=== PATIENT | female | born 1980 | race Caucasian/White ===

== ENCOUNTER 2017-01-25 16:45 | Emergency (ER) | payer OTHER ==
[~2017-01-25] VITALS: Ht 160 cm; Wt 82.8 kg
[~2017-01-25 16:45] MED LIST: IBUP-1050 PO
[2017-01-25 16:54] VITALS: TEMP 36.9; Ht 160 cm; Wt 82.8 kg
[2017-01-25] MEDS ORDERED: CEPHALEXIN MONOHYDRATE 250 MG CAP PO STA (17:12)
[2017-01-25] MEDS ORDERED: CIPROFLOXACIN 500 MG TAB PO STA (17:12)
[2017-01-25] MEDS ORDERED: CEPHALEXIN 500MG HOME PACK 1 EA BTL PO STA (17:12)
[2017-01-25] MEDS ORDERED: CIPROFLOXACIN 500MG HOME PACK PO STA (17:12)
[2017-01-25] MEDS ORDERED: DIPHTHERIA/TETANUS/PERTUSSIS 0.5 ML SYR/VIAL IM. ONE (17:15)
[2017-01-25] MEDS ORDERED: ASCO250T4 PO (17:16)
--- NOTE | 2017-01-25 17:48 | DIAGNOSTIC IMAGING REPORT ---
LEFT FOOT MIN 3 VIEWS ROUTINE CLINICAL HISTORY: Left foot pain. Puncture injury. COMPARISON: None. DISCUSSION: No fractures or dislocations are visualized. No radiopaque foreign bodies are evident. There is a prominent plantar calcaneal spur. No destructive lesions are visualized. IMPRESSION: 1. No fractures identified 2. No radiopaque foreign bodies are visualized Electronically signed by: Bryan Everett M.D. 01/25/2017 5:47 PM Dictated Date/Time: 01/25/2017 5:46 PM
--- NOTE | 2017-01-25 17:50 | EMERGENCY ROOM VISIT NOTE ---
ED Visit Note First contact with patient: 16:59 I have personally seen and evaluated the patient with the physician senior agricultural assistant. I agree with the diagnostic/management decisions and have personally been involved in these decisions and agree with the diagnosis.
[2017-01-25] MEDS ORDERED: CEPH500C PO (17:54)
[2017-01-25] MEDS ORDERED: CIPR-255 PO (17:54)
--- NOTE | 2017-01-25 17:56 | EMERGENCY ROOM VISIT NOTE ---
History First contact with patient: 16:59 Chief Complaint: PUNCTURE WOUND Stated Complaint: STICK POKED THROUGH LF FOOT Nursing Triage Summary: No injury noted in triage. History of Present Illness The patient is a 36 year old female who presents to the Emergency Room via private vehicle with complaints of "stick poked her left foot". The patient states that 2 hours prior to arrival [place] , when she stepped next to a tree that had spikes/thorns and when she stepped on one of them it went through her shoe which was a sneaker, through her sock and into the distal aspect of the bottom of her left foot. She notes that she remove this, and saw a little bit of tissue and bleeding on the end of the thorn. She states that the length of the thorn is roughly 6 cm, and it was very thin. She notes minimal pain in the foot, but it is difficult to walk. Patient is unsure of her last tetanus. Review of Systems A complete 6-point Review of Systems was discussed with the patient, with pertinent positives and negatives listed in the History of Present Illness. All remaining Review of Systems questions can be considered negative unless otherwise specified. Past Medical/Surgical History Unremarkable Family History Heart disease Social History Smoking Status: Never Smoker Social History: Patient lives at home, denies alcohol and tobacco use. Current/Historical Medications Scheduled Ascorbic Acid (Vitamin C), 1 TAB PO DAILY Cephalexin Monohydrate (Keflex), 500 MG PO QID Ciprofloxacin Hcl (Cipro), 500 MG PO BID Scheduled PRN Ibuprofen (Advil), 400 MG PO TID PRN for Pain Allergies Coded Allergies: No Known Allergies (Unverified , 03/29/15) Physical Exam Vital Signs Date Time Temp Pulse Resp B/P Pulse Ox O2 Delivery O2 Flow Rate FiO2 01/25/17 18:12 71 18 147/92 96 01/25/17 16:54 36.9 100 20 138/84 99 Room Air Physical Exam VITAL SIGNS - Vital signs and nursing notes were reviewed. The patient is afebrile, slightly hypertensive, heart rate of 100 and is saturating well on room air 99%. GENERAL -36-year-old female appearing her stated age who is in no acute distress. Communicates well with provider and answers questions appropriately. SKIN - Without rashes. There is a small punctate region, likely where the foreign had injured her foot overlying the left distal MTP regions. A light was held to this region and held in an angle to appreciate any potential retained foreign body. The skin was homogenous. No evidence of retained foreign body. There is no drainage at this time. EXTREMITIES - No clubbing or peripheral cyanosis. No pretibial edema present. Patient is neurovascularly intact in the left lower extremity. No bony tenderness. Medical Decision & Procedures ER Provider Diagnostic Interpretation: LEFT FOOT MIN 3 VIEWS ROUTINE CLINICAL HISTORY: Left foot pain. Puncture injury. COMPARISON: None. DISCUSSION: No fractures or dislocations are visualized. No radiopaque foreign bodies are evident. There is a prominent plantar calcaneal spur. No destructive lesions are visualized. IMPRESSION: 1. No fractures identified 2. No radiopaque foreign bodies are visualized Electronically signed by: Bryan Everett M.D. 01/25/2017 5:47 PM Dictated Date/Time: 01/25/2017 5:46 PM Medications Administered Medications (Trade) Dose Ordered Sig/Emiliano Route Start Time Stop Time Status Last Admin Dose Admin Diphtheria/ Pertussis/Tetanus Vacc (Adacel Inj) 0.5 ml ONCE ONCE IM. 01/25/17 17:15 01/25/17 17:16 DC 01/25/17 17:14 0.5 ML Cephalexin Monohydrate (Keflex 500MG Home Pack) 1 homepack NOW STAT PO 01/25/17 17:12 01/25/17 17:17 DC 01/25/17 18:00 1 HOMEPACK Cephalexin Monohydrate (Keflex Cap) 500 mg NOW STAT PO 01/25/17 17:12 01/25/17 17:17 DC 01/25/17 17:59 500 MG Ciprofloxacin (Cipro Tab) 500 mg NOW STAT PO 01/25/17 17:12 01/25/17 17:17 DC 01/25/17 18:00 500 MG Ciprofloxacin (Cipro 500MG Home Pack) 1 homepack UD STAT PO 01/25/17 17:12 01/25/17 17:17 DC 01/25/17 18:00 1 HOMEPACK Medical Decision Patient was seen and evaluated as above. After obtaining a thorough history and physical examination he was decided to obtain a radiograph of the affected extremity to evaluate for any retained foreign body that is radiopaque. Results as above. No abnormalities noted. Patient was informed about the heel spur. The patient was given Keflex and Cipro for infection prophylaxis. There is also concern for the original so as the puncture was through the shoe. She was given her first dose here, I home pack for departure as well as remainder sent to her pharmacy. Total duration be just over 5 days for this. She was unsure of her last tetanus immunization, and her status was checked in the electronic medical record however no record was found for this. Because of the high risk, she was given the Adacel injection. She is to return in 48 hours for recheck of the wound or with her family doctor. She was educated to return sooner with signs of infection. She was also educated upon wound management. The region was cleansed with normal saline, dressed with bacitracin followed by a bandage. She was educated upon worrisome symptoms which to return, had questions answered prior to discharge and was discharged home in good condition. In evaluation and treatment of this patient the following differential diagnoses were entertained: Retained foreign body, puncture wound, fracture, among others. Impression Primary Impression: Puncture wound of foot, left Departure Information Dispostion Home / Self-Care Condition GOOD Prescriptions Cephalexin Monohydrate (Keflex) 500 Mg Cap 500 MG PO QID for 4 Days, #16 CAP Prov: Buddy Webb PA-C 01/25/17 Ciprofloxacin Hcl (CIPRO) 500 Mg Tab 500 MG PO BID for 4 Days, #8 TAB Prov: Buddy Webb PA-C 01/25/17 Referrals No Doctor, Assigned (PCP) Patient Instructions My [facility] Additional Instructions You were seen in the emergency Department for a puncture wound of your left foot. At this time I'm not able to visually or radiographically see any retained foreign body. To help prevent infection it is recommended that you take Keflex and Cipro. The Keflex is 1 tablet every 6 hours. This is 4 times a day. This is for 5 days total. The Cipro is 1 tablet every 12 hours. This is 2 times a day. This is also for 5 days total. It is recommended that he seek follow-up in 48 hours either with your family doctor or by returning to the emergency department. These type of wounds are prone to infection. For pain you may use [id number] Tylenol and ibuprofen as advised on the bottle. You received your tetanus immunization here today. Please return to the emergency department with any new/concerning symptoms. Problem Qualifiers Primary Impression: Puncture wound of foot, left Encounter type: initial encounter Qualified Codes: S91.332A - Puncture wound without foreign body, left foot, initial encounter
[2017-01-25 18:12] VITALS: BP 147/92; PULSE 71; O2SAT 96
== END 2017-01-25 18:13 | disposition home or self-care (01) ==
LOC: C.EDB 16:46 → C.EDD 18:13
DX: S91.332A Puncture wound without foreign body, left foot, initial encounter (principal); W45.8XXA Other foreign body or object entering through skin, initial encounter; Y92.89 Other specified places as the place of occurrence of the external cause

== ENCOUNTER → 2017-12-07 | Outpatient (CLI) | payer OTHER ==
[~2017-12-07] MED LIST changes: +ASCO250T4 PO; +CIPR-255 PO
== END | disposition home or self-care (01) ==
LOC: C.LABSPEC 15:49
PROVIDERS: ATTEND Obstetrics & Gynecology
DX: N93.9 Abnormal uterine and vaginal bleeding, unspecified (principal)

== ENCOUNTER → 2017-12-07 | Outpatient (CLI) | payer OTHER ==
[2017-12-07 16:49] LABS: HEP C IGG 13 YRS+OLDER_RFLX NEG (NEG)
== END | disposition home or self-care (01) ==
LOC: C.LAB1850 14:26
PROVIDERS: ATTEND Obstetrics & Gynecology
DX: N93.9 Abnormal uterine and vaginal bleeding, unspecified (principal)

== ENCOUNTER → 2018-03-08 | Outpatient (CLI) | payer OTHER | END | disposition home or self-care (01) | LOC: C.PAPS 11:06 | PROVIDERS: ATTEND Obstetrics & Gynecology | DX: Z12.4 Encounter for screening for malignant neoplasm of cervix (principal) ==